=== PATIENT | male | born 1965 | race Caucasian/White ===

== ENCOUNTER 2024-09-16 21:45 | Inpatient (IN) | payer OTHER ==
[~2024-09-16] VITALS: Ht 170.2 cm; Wt 75.0 kg
[2024-09-17] MEDS ORDERED: ONDANSETRON HCL 4 MG/2 ML VIAL IVP PRN
[2024-09-17] MEDS ORDERED: ACETAMINOPHEN 325 MG TABLET PO PRN
[2024-09-17] MEDS ORDERED: LORazepam 2 MG/ML VIAL IVP PRN
[2024-09-17] MEDS ORDERED: ZOLPIDEM TARTRATE 5 MG TABLET PO PRN
[2024-09-17] MEDS ORDERED: MAGNESIUM HYDROXIDE SUSPENSION 30 ML UDCUP PO PRN
[2024-09-17 00:56] LABS: APPEARANCE,URINE CLEAR (CLEAR); BILIRUBIN,URINE NEGATIVE (NEGATIVE); COLOR,URINE YELLOW (YELLOW); GLUCOSE, URINE (UA) NEGATIVE (NEGATIVE); KETONES,URINE NEGATIVE (NEGATIVE); LEUKOCYTE ESTERASE ,URINE NEGATIVE (NEGATIVE); NITRATE,URINE NEGATIVE (NEGATIVE); OCCULT BLOOD,URINE NEGATIVE (NEGATIVE); SPECIFIC GRAVITIY, URINE 1.026 (1.003-1.030); UROBILINOGEN,URINE <=1.0 mg/dL (<=1.0)
[2024-09-17 00:58] LABS: PROTEIN,URINE NEGATIVE (NEGATIVE)
[2024-09-17 01:06] LABS: ALCOHOL, URINE DRUG SCREEN NEGATIVE (NEGATIVE); AMPHET/METH SCREEN,URINE POSITIVE (NEGATIVE); BARBITURATE SCREEN, URINE NEGATIVE (NEGATIVE); BENZODIAZEPINES SCREEN,URINE NEGATIVE (NEGATIVE); CANNABINOID SCREEN,URINE NEGATIVE (NEGATIVE); COCAINE SCREEN,URINE NEGATIVE (NEGATIVE); METHADONE SCREEN, URINE NEGATIVE (NEGATIVE); OPIATE SCREEN,URINE NEGATIVE (NEGATIVE); PHENCYCLIDINE SCREEN,URINE NEGATIVE (NEGATIVE)
[2024-09-17] MEDS: SODIUM CHLORIDE 0.9% 1,000 ML IV ONE (01:33)
[2024-09-17 01:39] LABS: BASOPHILS % (AUTO) 0.6 % (0.0-2.0); EOSINOPHILS % (AUTO) 0.9 % (1.0-6.0); HEMATOCRIT 40.8 % (41-53); HEMOGLOBIN 14.4 g/dL (13.5-17.5); LYMPHOCYTES # (AUTO) 1.9 K/uL (1.0-4.8); MEAN CORPUSCULAR HEMOGLOBIN 31.9 pg (26.0-34.0); MEAN CORPUSCULAR HGB CONC 35.3 G/dL (31.0-37.0); MEAN CORPUSCULAR VOLUME 90 fL (80-100); MONOCYTES # (AUTO) 0.8 K/uL (0.1-1.0); MONOCYTES % (AUTO) 9.3 % (2.0-9.0); NEUTROPHILS # (AUTO) 5.3 K/uL (1.8-7.7); NEUTROPHILS % (AUTO) 65.2 % (40.0-70.0); PLATELET COUNT (AUTO) 229 K/uL (150-450); RED BLOOD CELL COUNT(AUTO) 4.52 MIL/uL (4.50-5.90); RED CELL DISTRIBUTION WIDTH 13.5 % (11.5-14.5); WHITE BLOOD COUNT (AUTO) 8.1 K/uL (4.5-11.0)
[2024-09-17 01:48] LABS: ANION GAP 13 mmol/L (8-16); CALCIUM, TOTAL 8.6 mg/dL (8.8-10.5); CARBON DIOXIDE 24 mmol/L (22-29); CHLORIDE 104 mmol/L (98-107); CREATININE 0.65 mg/dL (0.60-1.30); GLOMERULAR FILTR. RATE CALC > 60 mL/min (>60); GLUCOSE,RANDOM 103 mg/dL (70-110); POTASSIUM 3.1 mmol/L (3.5-5.1); SODIUM SERUM 140 mmol/L (136-145); UREA NITROGEN, BLOOD 20 mg/dL (7-18)
[2024-09-17 01:52] LABS: ALCOHOL, BLOOD (SERUM) < 3 mg/dL (0-10)
[2024-09-17 01:54] LABS: ALANINE AMINOTRANSFERASE 17 U/L (12-78); ALBUMIN 3.5 g/dL (3.4-5.0); ALKALINE PHOSPHATASE 56 U/L (46-116); ASPARTATE AMINOTRANSFERASE 21 U/L (15-37); BILIRUBIN,TOTAL 0.9 mg/dL (0.1-1.0); LIPASE 38 U/L (16-77); TOTAL PROTEIN, SERUM 6.5 g/dL (6.4-8.2)
[2024-09-17] MEDS: POTASSIUM CHLORIDE 10% 40 MEQ/30 ML LIQUID UDCUP PO ONE (02:30)
[2024-09-17 04:02] VITALS: BP 139/59; PULSE 52; RESP 16; TEMP 98; O2SAT 100
[2024-09-17 04:11] VITALS: BP 139/59; PULSE 52; RESP 16; TEMP 98; O2SAT 100
[2024-09-17] MEDS: FAMOTIDINE 20 MG TABLET PO SCH (08:06)
[2024-09-17 08:35] VITALS: BP 115/61; PULSE 69; RESP 18; TEMP 99.2; O2SAT 100
[2024-09-17 15:54] VITALS: BP 119/52; PULSE 72; RESP 18; TEMP 99.3; O2SAT 100
[2024-09-17 20:38] VITALS: BP 127/60; PULSE 74; RESP 18; TEMP 98.2; O2SAT 96
[2024-09-18 05:25] VITALS: BP 141/69; PULSE 90; RESP 18; TEMP 98.5; O2SAT 98
[2024-09-18 07:54] VITALS: BP 140/81; PULSE 78; RESP 19; TEMP 99.3; O2SAT 98
[2024-09-18] MEDS: BUPRENORPHINE HCL/NALOXONE HCL 2-0.5 MG SUBLINGUAL TABLET SL SCH (08:31)
[2024-09-18 19:28] VITALS: BP 132/79; PULSE 89; RESP 18; TEMP 98.1; O2SAT 97
[2024-09-19] VITALS (7 sets, daily range): BP systolic 127–146; BP diastolic 65–87; PULSE 67–89; RESP 16–20; TEMP 98.2–99; O2SAT 97–100
[2024-09-19] MEDS ORDERED: FLUT1BLS3 IH (09:37)
[2024-09-19] MEDS: IPRATROPIUM BROMIDE 0.5 MG/2.5 ML NEB SOLUTION NEB ONE (11:17)
[2024-09-19] MEDS: ALBUTEROL SULFATE 2.5 MG/0.5 ML NEB SOLUTION NEB ONE (11:17)
== END 2024-09-19 17:17 | DRG 897 ==
LOC: EMS 21:45 → EDH 09-17 00:20 → 6S 09-17 03:20
PROVIDERS: ADMIT Internal Medicine; ATTEND Internal Medicine
DX: F11.13 Opioid abuse with withdrawal (principal); E87.6 Hypokalemia; J44.9 Chronic obstructive pulmonary disease, unspecified; F15.10 Other stimulant abuse, uncomplicated; Z88.0 Allergy status to penicillin
CPT/HCPCS: 71045; 80048; 80076; 80307; 81003; 83690; 84132; 85025; 93005; 94640; 99285; G0480; J7030; 36415-L1; 36415-TC; J7613